=== PATIENT | male | born 1955 | race Caucasian/White ===

== ENCOUNTER 2016-09-15 10:48 | Emergency (ER) | payer OTHER ==
[2016-09-15] MEDS ORDERED: Polymyx/Trimethoprim OPTH* 10 ML BTL RIGHT EYE ONE (11:30)
--- NOTE | 2016-09-15 11:31 | ED ---
Throat Pain/Nasal Congestion - HPI Summary HPI Summary: 61M presents with foreign body in left eye. He was sanding and wearing safety glasses when dust blew into his eye. He tried washing out his eye with eye wash and states that he still feels a foreign body sensation in his left eye. He denies wearing any contacts or glasses. His tetanus was 5 years ago. He denies any discharge from eye. He denies any previous trauma to eye. - History of Current Complaint Chief Complaint: EDEyeProblem Time Seen by Provider: 09/15/16 11:05 - Allergies/Home Medications Allergies/Adverse Reactions: Allergies Allergy/AdvReac Type Severity Reaction Status Date / Time Zoster Vaccine Live Allergy Unknown Verified 09/15/16 11:09 [From Zostavax] Reaction Details PMH/Surg Hx/FS Hx/Imm Hx Endocrine/Hematology History: Denies: Hx Diabetes Cardiovascular History: Denies: Hx Pacemaker/ICD Musculoskeletal History: Denies: Hx Scoliosis Sensory History: Denies: Hx Hearing Aid Neurological History: Denies: Hx Headaches, Other Neuro Impairments/Disorders Psychiatric History: Reports: Hx Depression Denies: Hx Panic Disorder - Surgical History Surgery Procedure, Year, and Place: SINUS SURGERY MID , APPENDIX 2010 Infectious Disease History: No Infectious Disease History: Reports: Traveled Outside the [place] in Last 30 Days - [place] - Family History Known Family History: Positive: Unknown - Social History Alcohol Use: Weekly Alcohol Amount: 0-2 glasses of wine/week Hx Substance Use: No Substance Use Type: Reports: None Hx Tobacco Use: No Smoking Status (MU): Never Smoked Tobacco Review of Systems Negative: Fever Positive: Other - foreign body left eye Negative: Chest Pain Negative: Shortness Of Breath All Other Systems Reviewed And Are Negative: Yes Physical Exam Triage Information Reviewed: Yes Vital Signs On Initial Exam: Initial Vitals Temp Pulse Resp BP Pulse Ox 97.6 F 73 16 150/86 98 09/15/16 10:50 09/15/16 10:50 09/15/16 10:50 09/15/16 10:50 09/15/16 10:50 Vital Signs Reviewed: Yes Appearance: Positive: Well-Appearing Skin: Positive: Warm, Dry Head/Face: Positive: Normal Head/Face Inspection Eyes: Positive: EOMI, SHERYL, Conjunctiva Clear, Other: - no foreign body seen ENT: Positive: Normal ENT inspection, Pharynx normal, TMs normal Respiratory/Lung Sounds: Positive: Clear to Auscultation, Breath Sounds Present Cardiovascular: Positive: Normal, RRR Procedures - Eye Procedure Alcaine Drops Administered: Yes - left eye fluorscein stain shows abrasion at 12 position Diagnostics - Vital Signs Vital Signs Temp Pulse Resp BP Pulse Ox 09/15/16 11:07 71 99 09/15/16 11:06 141/82 09/15/16 11:04 98.4 F 72 16 141/82 98 09/15/16 10:50 97.6 F 73 16 150/86 98 - Laboratory Lab Statement: Any lab studies that have been ordered have been reviewed, and results considered in the medical decision making process. EENT Course/Dx - Course Course Of Treatment: 61M presents with foreign body in left eye. was sanding when felt foreign body go into eye. washed eye out and still felt like was one there. tetanus up to date. no foreign body seen on exam. fluorscein stain show area of uptake at 12 position. did not seem foreign body there so likely abrasion. will treat with polytrim. patient understands and agrees with plan - Differential Diagnoses Differential Diagnoses: Conjunctivitis, Corneal Abrasion, Foreign Body - Diagnoses Provider Diagnoses: Corneal abrasion, left Discharge - Discharge Plan Condition: Good Disposition: HOME Patient Education Materials: Corneal Abrasion (ED) Referrals: Enedina Sheffield MD [Primary Care Provider] - Additional Instructions: Place 1 drop in eye 4 times a day for 5 days Use artificial tears or saline to rinse eye for symptomatic relief Take Tylenol or ibuprofen for pain Follow up with ophthalmology if no improvement in 5 days Return to ED if develop any new or worsening symptoms Images - Images Eyes: 1 - abrasion
[2016-09-15 11:43] VITALS: BP 136/80
== END 2016-09-15 11:43 | disposition home or self-care (01) ==
LOC: ED 10:48
DX: S05.02XA Injury of conjunctiva and corneal abrasion without foreign body, left eye, initial encounter (principal); X58.XXXA Exposure to other specified factors, initial encounter; Y93.9 Activity, unspecified; Y92.9 Unspecified place or not applicable; Y99.9 Unspecified external cause status
CPT/HCPCS: 99282

== ENCOUNTER 2017-09-10 06:10 | Day surgery (SDC) | payer OTHER ==
--- NOTE | 2017-09-01 15:05 | HP ---
CC: Dr. Enedina Sheffield * HISTORY AND PHYSICAL: DATE OF PLANNED ADMISSION AND SURGERY: 09/10/17 HISTORY OF PRESENT ILLNESS: Mr. Mejias is a 62-year-old white male who is admitted with microscopic hematuria, several suspicious bladder lesions, for cystoscopy and bladder biopsies. I have been following Mr. Mejias for the last 15 years because of recurrent episodes of prostatitis associated with hematuria. In the past, he was worked up with cystoscopies and renal ultrasounds and the only abnormalities noted were consistent with prostatitis. He has been maintained on tamsulosin 0.4 mg daily for bladder outlet obstruction symptoms. PSA 1.4 one year ago. He had a cystoscopy 6 weeks ago because of episodes of hematuria. There were multiple hyperemic areas noted in the base of the bladder that were consistent with either focal cystitis or carcinoma in situ. His urine cytology showed inflammation, but no malignancy. He was placed on a 2-weeks' course of Bactrim and the cystoscopy was repeated. It continued to show significant degree of irregularity and hyperemia of the trigone, the base of the bladder, and the area of the bladder neck. Again, the differential diagnosis is chronic cystitis versus carcinoma in situ. Because of the above findings, patient is brought in for cystoscopy and multiple bladder biopsies. PAST MEDICAL HISTORY AND SYSTEM REVIEW: He has history of depression, and has been maintained on Seroquel 150 mg daily, Prozac 20 mg daily, and Lamictal 20 mg daily. He takes Klonopin and oxycodone for back pain as needed. He has hyperlipidemia and is maintained on Lipitor 20 mg daily. The patient had a renal ultrasound in the office, which was normal. His urine culture and sensitivity was negative. FAMILY HISTORY: Relevant for a maternal uncle who developed prostate carcinoma. SOCIAL HISTORY: He is a nonsmoker. PHYSICAL EXAMINATION GENERAL: Moderately overweight, otherwise pleasant and healthy-looking male. VITAL SIGNS: Blood pressure 130/80, pulse of 80. HEART: Normal. LUNGS: Normal. ABDOMEN: He has no CVA tenderness. Abdominal exam is normal. EXTERNAL GENITALIA: Normal. RECTAL EXAM: Shows a slightly enlarged, but non-suspicious prostate. IMPRESSION: Recurrent episodes of chronic prostatitis of many years duration with episodes of hematuria and suspicious bladder lesions on recent cystoscopies. Plan is for cystoscopy and bladder biopsies. I discussed the indications and above plans with the patient. All his questions were answered. [id number]/[facility] #: [id number] ERA
[~2017-09-10 06:10] MED LIST: Buffered Lidocaine 0.9% SYRIN* 5 ML/SYR SYRINGE INTRADERM ONE; Dexamethasone IV* 4 MG/ML 1 ML (4 MG) IV SLOW PU ONE; Famotidine IV* 10 MG/ML 2 ML (20 mg) IV ONE
[2017-09-10] MEDS ORDERED: cefTRIAXone(*) 2 GM ADDV.VIAL IVPB ONE (06:12)
[2017-09-10] MEDS ORDERED: Dexamethasone IV* 4 MG/ML 1 ML (4 MG) ONE (06:12)
[2017-09-10] MEDS ORDERED: Famotidine IV* 10 MG/ML 2 ML (20 mg) ONE (06:12)
[2017-09-10] MEDS ORDERED: fentaNYL* 50 MCG/ML 2 ML VIAL (100 MCG VIAL) ONE (07:05)
[2017-09-10] MEDS ORDERED: Midazolam* 1 MG/ML 5 ML VIAL (5 MG) ONE (07:06)
[2017-09-10] MEDS ORDERED: HYDROcodone/ACETAMIN 5-325 MG* 1 TAB PO PRN (07:23)
[2017-09-10] MEDS ORDERED: Ketorolac INJ* 30 MG/ML 1 ML VIAL IV PRN (07:23)
[2017-09-10] MEDS ORDERED: Ondansetron INJ* 2 MG/ML VIAL IV PRN (07:23)
[2017-09-10] MEDS ORDERED: oxyCODONE/Acetamin 5/325 MG* TAB PO PRN (07:23)
[2017-09-10] MEDS ORDERED: fentaNYL* 50 MCG/ML 2 ML VIAL (100 MCG VIAL) IV PRN (07:23)
[2017-09-10] MEDS ORDERED: Naloxone* 0.4 MG/ML 1 ML VIAL IV PRN (07:23)
[2017-09-10] MEDS ORDERED: Propofol* 10 MG/ML 20 ML BTL IV PUSH ONE (07:31)
[2017-09-10] MEDS ORDERED: Lidocaine 2% PF * 5 ML VIAL ONE (07:31)
[2017-09-10] MEDS ORDERED: PROCHLORPERAZINE INJ 5 MG/ML 2 ML VIAL ONE (07:54)
[2017-09-10 09:48] VITALS: BP 136/81
--- NOTE | 2017-09-11 03:49 | OP ---
CC: Dr. Sheffield * DATE OF OPERATION: 09/10/17 - [facility] DATE OF : 59 SURGEON: Jarrod Boucher MD ANESTHESIOLOGIST: Eli Christensen MD ANESTHESIA: General. PRE-OP DIAGNOSES: 1. Hematuria. 2. Suspicious bladder lesions. POST-OP DIAGNOSES: 1. Hematuria. 2. Suspicious bladder lesions. 3. Pending pathology. OPERATIVE PROCEDURE: Cystoscopy, multiple bladder biopsies (trigone and base of bladder). INDICATION FOR PROCEDURE: Mr. Mejias is a 62-year-old male, who is a nonsmoker and who has a long history of recurrent prostatitis and bladder outlet obstruction, maintained on tamsulosin. He was recently noted to have persistent microscopic hematuria. Cystoscopy showed diffuse hyperemia and edema of the base of the bladder and of the trigone. Urine cytologies were negative showing inflammation cells. Renal ultrasound normal. He was placed on a 2 weeks' course of Bactrim and the cystoscopy was repeated and the lesions were still present. Because of the above findings, he is admitted for bladder biopsies to rule out bladder tumors. PATHOLOGY AT CYSTOSCOPY: The penile and bulbar urethrae looked normal. No strictures were noted. The prostatic urethra measured about 2.5 cm in length and there was a moderate degree of obstruction by prostate enlargement. Examination of the bladder showed edema, hyperemia, and irregularity of the mucosa of the posterior bladder neck, the trigone, and the base of the bladder. The ureteral orifices looked normal. Clear efflux was seen coming from both orifices. The appearance of the pathology noted was consistent with either inflammation or carcinoma in situ. The rest of the bladder wall looked normal. There were no other suspicious lesions seen. No similar pathology was noted in the rest of the bladder. There were minimal bladder trabeculations. No papillary lesions, no calculi or diverticula were noted. DESCRIPTION OF PROCEDURE: After successful general anesthesia, the patient was placed in the lithotomy position and was prepped and draped for a cystoscopy. Cystoscopy was performed. The bladder was carefully inspected and the above findings were noted. Using the rigid biopsy forceps, a total of 4 biopsies were obtained from the posterior bladder neck, the trigone and the base of the bladder, sampling characteristic areas from the bladder pathology. Muscle fibers were noted at the site of the biopsies. There was no bladder perforation. The sites of the biopsies were then thoroughly fulgurated with the Bugbee electrode achieving good hemostasis. Final cystoscopy showed intact ureteral orifices, good hemostasis. The cystoscope was removed. A size 16- Slovak Ruiz catheter was placed inside the bladder and the balloon inflated with 10 cc of water. The patient tolerated the procedure well and left the operating room in good condition. [id number]/[facility] #: [id number] [facility]ITALJames
== END 2017-09-10 10:31 | disposition home or self-care (01) ==
LOC: OR 06:10
PROVIDERS: ATTEND Urology
DX: N32.9 Bladder disorder, unspecified (principal); R31.29 Other microscopic hematuria; N30.20 Other chronic cystitis without hematuria; N40.1 Benign prostatic hyperplasia with lower urinary tract symptoms; N13.8 Other obstructive and reflux uropathy; F32.9 Major depressive disorder, single episode, unspecified; E78.5 Hyperlipidemia, unspecified
CPT/HCPCS: 88305; J0696; J0780; J1100; J2250; J2704; J3010